=== PATIENT | male | born 1980 | race American Indian/Alaskan Native ===

== ENCOUNTER 2016-07-17 10:04 | Emergency (ER) | payer SELFPAY ==
[2016-07-17 10:51] VITALS: BP 141/84
[2016-07-17] MEDS ORDERED: MOTRIN PO ONE (13:25)
--- NOTE | 2016-07-18 22:06 | Emergency Department Report ---
Entered by BERNY NARANJO, acting as scribe for JUANCARLOS URIBE NP. Abscess Boil HPI - HPI Chief Complaint: Skin/Abscess/Foreign Body Stated Complaint: SPIDER BITE Time Seen by Provider: 07/17/16 12:16 Duration: 2 Days Location: Lower Extremity (right inner thigh) Severity: Moderate (6/10) History: Yes Fever (with associated chills), Yes Pain, No Purulent Drainage, No Numbness, No Foreign Body, No Previous History, No Insect Bite HPI: 36 year old male with no significant PMHx presents to the ED c/o an abscess on right inner thigh that began 2 days ago. Rates right inner thigh pain around affected area a 6/10 in severity. Associated symptoms include a subjectuve fever and chills, but denies SOB, nausea, vomiting, numbness, and tingling. Notes he didn't take any medication or apply warm compresses to affected area. NKDA. Home Medications: Previous Rx's Medication Instructions Recorded Last Taken Type Ibuprofen [Motrin 600 MG tab] 600 mg PO Q8H PRN 10 Days 07/17/16 Unknown Rx Sulfamethoxazole/Trimethoprim 1 each PO BID 7 Days 07/17/16 Unknown Rx [Bactrim DS TAB] Allergies/Adverse Reactions: Allergies Allergy/AdvReac Type Severity Reaction Status Date / Time No Known Allergies Allergy Unverified 07/17/16 10:46 ED Review of Systems ROS: Stated complaint: SPIDER BITE Other details as noted in HPI Comment: All other systems reviewed and negative Constitutional: chills, fever. denies: weakness, other (tingling) Eyes: denies: eye pain, eye discharge, vision change ENT: denies: ear pain, throat pain Respiratory: denies: orthopnea, shortness of breath, SOB with exertion, SOB at rest Cardiovascular: denies: chest pain, dyspnea on exertion, orthopnea Endocrine: no symptoms reported Gastrointestinal: denies: nausea, vomiting Genitourinary: denies: urgency, dysuria Musculoskeletal: other (right inner thigh pain around affected area) Skin: other (10 mm cellulitic abscess that is tender, erythematous, and warm to touch). denies: rash Neurological: denies: numbness Psychiatric: denies: anxiety, depression Hematological/Lymphatic: denies: easy bleeding, easy bruising ED Past Medical Hx - Past Medical History Previous Medical History?: No - Surgical History Past Surgical History?: No - Medications Home Medications: Home Medications Medication Instructions Recorded Confirmed Last Taken Type Ibuprofen [Motrin 600 MG tab] 600 mg PO Q8H PRN 10 Days 07/17/16 Unknown Rx Sulfamethoxazole/Trimethoprim 1 each PO BID 7 Days 07/17/16 Unknown Rx [Bactrim DS TAB] ED Abscess Boil Physical Exam - Exam General: Vital signs noted. General: No apparent distress, normal gait, atraumatic. Size: 1 cm (10 mm abscess) Exam: Yes Tenderness, Yes Surrounding Cellulites/Erythema, Yes Normal Neurologic Exam, Yes Normal Circulation, No Fluctuance, No Lymphangitis, No Crepitation, No Heart Murmur Exam: - Head Exam: atraumatic, normocephalic. - Eye exam: Normal appearance. - ENT exam: mucous membranes moist. -Neck exam: Normal inspection, lymphadenopathy. - Respiratory exam: normal lung sounds bilaterally. No respiratory distress. - Cardiovascular Exam: Regular rate, normal rhythm. No systolic murmur, diastolic murmur, rubs, or gallop. - GI/Abdominal Exam: Abdomen is soft, normal bowel sounds. - Extremities Exam: normal inspection. Tender around affected area on right inner thigh. - Back Exam: normal inspection. - Neurological Exam: Present: alert, oriented X3. - Skin exam: warm, dry, intact, normal color. No rash. 10 mm cellulitic abscess that is tender, erythematous, and warm to touch. -Psychiatric exam: Present: normal affect, normal mood I & D Note - I & D Note I & D Note: Under sterile procedure, I used Betadine to clean the area. There is a 18-gauge hypo-with 10 mL syringe to aspirate fluid contact in the abscess area. 0.5 mL of purulent drainage. Apply sterile dressing with tape. Patient tolerated well with no signs of distress. Toxic or ill appearance. ED Course Vital Signs 07/17/16 10:48 Temperature 99.8 F H Pulse Rate 93 H Respiratory 18 Rate Blood Pressure 141/84 Blood Pressure 141/84 [Right] O2 Sat by Pulse 99 Oximetry Vital Signs 07/17/16 07/17/16 07/17/16 10:48 13:40 13:55 Temperature 99.8 F H Pulse Rate 93 H 69 Respiratory 18 16 16 Rate Blood Pressure 141/84 Blood Pressure 141/84 [Right] O2 Sat by Pulse 99 100 Oximetry Vital Signs 07/17/16 07/17/16 07/17/16 10:48 13:40 13:55 Temperature 99.8 F H Pulse Rate 93 H 69 Respiratory 18 16 16 Rate Blood Pressure 141/84 Blood Pressure 141/84 [Right] O2 Sat by Pulse 99 100 Oximetry 07/17/16 13:58 Temperature 98.2 F Pulse Rate Respiratory Rate Blood Pressure Blood Pressure [Right] O2 Sat by Pulse Oximetry - Reevaluation(s) Reevaluation #1: 07/17/16 13:53 Patient tolerated aspiration of the abscess well. No signs of distress. Critical care attestation.: If time is entered above; I have spent that time in minutes in the direct care of this critically ill patient, excluding procedure time. ED Medical Decision Making - Medical Decision Making Ed course: 36-year-old male that presents with cellulitic abscess to the right inner thigh measuring about 10 mm. 1- I used ultrasound at bedside to rule out any deep abscess. Under ultrasound , I noticed 1 cm fluid like. 2- I used an 18 gauge needle with 10 mL syringe to aspirate the abscess. For further information but the procedure please see procedure note. 3- patient's daughter procedure well. No signs of any distress noted. 4- I instructed the patient to observe sinus symptoms of infection or redness passing the marked area and to report back to emergency room. 5- I is a permanent black marker to outline the cellulitic area. 6- patient been prescribed Bactrim at discharge. 7- patient did not seem toxic or ill appearance the time of discharge. No further questions noted by the patient. 8- I instructed the patient to follow with primary care doctor in 3-5 days. ED Disposition Clinical Impression: Cellulitis, Abscess Disposition: DISCHARGED TO HOME OR SELFCARE Is pt being admited?: No Does the pt Need Aspirin: No Condition: Stable Instructions: Cellulitis (ED), Abscess (ED) Additional Instructions: Please take medication as prescribed. Finish the is a full course of antibiotics. If you notice any redness or swelling past the marked area of report back to emergency room. Follow-up with her primary care doctor in 3-5 days. Keep the area clean and dry. Prescriptions: Ibuprofen [Motrin 600 MG tab] 600 mg PO Q8H PRN 10 Days PRN Reason: Pain Sulfamethoxazole/Trimethoprim [Bactrim DS TAB] 1 each PO BID 7 Days Referrals: PRIMARY CARE,MD [Primary Care Provider] - 3-5 Days Forms: Work/School Release Form(ED) This documentation as recorded by the MARCELLA shelby JASMINE,accurately reflects the service I personally performed and the decisions made by RONY garcia MARTIN, HAND P[employer]ER.
== END 2016-07-17 13:59 | disposition home or self-care (01) ==
LOC: ED 10:04
DX: L02.415 Cutaneous abscess of right lower limb (principal); L03.115 Cellulitis of right lower limb